=== PATIENT | female | born 1940 | race Caucasian/White ===

== ENCOUNTER 2017-09-10 16:20 | Inpatient (IN) ==
[2017-09-10 17:20] LABS: Basophils # 0.1 10*3/uL (0.0-0.2); Basophils % 0.4 % (0.0-0.8); Eosinophils # 0.3 10*3/uL (0.0-0.87); Hematocrit 36.1 VOL% (35.7-47.0); Hemoglobin 11.8 GM/DL (12.0-16.0); Immature Granulocytes % 0.4 %; Immature Granulocytes Absolute 0.06 #; Lymphocytes # 2.1 10*3/uL (1.4-4.0); Lymphocytes % 14.5 % (21.3-54.2); Mean Corpuscular HGB Conc 32.7 GM/DL (32-36); Mean Corpuscular Hemoglobin 29 PG (27-34); Mean Corpuscular Volume 87.2 FL (87-102); Mean Platelet Volume 13.4 FL (9.6-12.0); Monocytes # 1.1 10*3/uL (0.11-0.8); Monocytes % 7.4 % (1.7-12.7); Neutrophils # 10.7 10*3/uL (1.4-7.4); Neutrophils % 75.3 % (38.7-73.9); Platelet Count 184 T/CUMM (130-400); Red Blood Count 4.14 MC/CUMM (3.8-5.5); Red Cell Distribution Width 14.2 % (9.3-17.3); White Blood Count 14.2 T/CUMM (4-12)
[2017-09-10] MEDS ORDERED: SODIUM CHLORIDE 0.9% 500 ML IV STA (17:34)
[2017-09-10 17:50] LABS: Alanine Aminotransferase 19 U/L (13-56); Albumin 3.6 G/DL (3.4-5.0); Alkaline Phosphatase 90 U/L (45-117); Aspartate Amino Transferase 11 U/L (0-37); Blood Urea Nitrogen 22 MG/DL (7-18); Calcium 9.4 MG/DL (8.5-10.1); Glucose 151 MG/DL (74-106); Magnesium 2.2 MG/DL (1.8-2.4); Osmolality,Calculated 284.4 MOS/KG (273-304); Sodium 140 MMOL/L (136-145); Total Protein 6.9 G/DL (6.4-8.3); Troponin I Only < 0.015 NG/ML (0.00-0.045)
[2017-09-10] MEDS ORDERED: MAGNESIUM SULF RIDER 2 GM in PREMIX 1 EACH IV PRN (21:14)
[2017-09-10] MEDS ORDERED: POTASSIUM CHLORIDE 20 MEQ TABLET PO PRN (21:14)
[2017-09-10] MEDS ORDERED: MORPHINE 2 MG/1 ML SYRINGE IV PRN (21:14)
[2017-09-10] MEDS ORDERED: NITROGLYCERIN SL 0.4 MG TABLET SL PRN (21:14)
[2017-09-10] MEDS ORDERED: diphenhydrAMINE CAP 50 MG CAPSULE PO PRN (21:14)
[2017-09-10] MEDS ORDERED: MAGNESIUM SULF RIDER 4 GM in PREMIX 1 EACH IV PRN (21:14)
[2017-09-10] MEDS ORDERED: NAPROXEN 250 MG TABLET PO PRN (21:14)
[2017-09-10] MEDS: CARVEDILOL 6.25 MG TABLET PO SCH (22:22)
[2017-09-10] MEDS: TICAGRELOR 90 MG TABLET PO SCH (22:23)
[2017-09-10] MEDS: SIMVASTATIN 10 MG TABLET PO SCH (22:23)
[2017-09-10] MEDS: GABAPENTIN 300 MG CAPSULE PO SCH (22:23)
[2017-09-10] MEDS: ASPIRIN CHEW 81 MG TABLET PO SCH (22:23)
[2017-09-10] MEDS: SPIRONOLACTONE 25 MG TABLET PO SCH (22:25)
[2017-09-10] MEDS: SERTRALINE 50 MG TABLET PO SCH (22:25)
[2017-09-10 22:51] LABS: Troponin I Only < 0.015 NG/ML (0.00-0.045)
[2017-09-11 02:16] LABS: Troponin I Only < 0.015 NG/ML (0.00-0.045)
[2017-09-11 04:57] LABS: Basophils # 0.1 10*3/uL (0.0-0.2); Basophils % 0.3 % (0.0-0.8); Eosinophils # 0.5 10*3/uL (0.0-0.87); Eosinophils % 3.5 % (0.00-10.9); Hematocrit 33.5 VOL% (35.7-47.0); Immature Granulocytes % 0.3 %; Immature Granulocytes Absolute 0.05 #; Mean Corpuscular HGB Conc 32.8 GM/DL (32-36); Mean Corpuscular Hemoglobin 28 PG (27-34); Mean Corpuscular Volume 86.6 FL (87-102); Mean Platelet Volume 13.2 FL (9.6-12.0); Monocytes # 1.5 10*3/uL (0.11-0.8); Monocytes % 9.7 % (1.7-12.7); Neutrophils # 9.2 10*3/uL (1.4-7.4); Neutrophils % 60.2 % (38.7-73.9); Platelet Count 153 T/CUMM (130-400); Red Blood Count 3.87 MC/CUMM (3.8-5.5); Red Cell Distribution Width 14.1 % (9.3-17.3); White Blood Count 15.3 T/CUMM (4-12)
[2017-09-11 05:31] LABS: Albumin 3.4 G/DL (3.4-5.0); Bilirubin,Total 0.7 MG/DL (0.2-1.0); Calcium 8.8 MG/DL (8.5-10.1); Magnesium 2.2 MG/DL (1.8-2.4); Potassium 3.7 MMOL/L (3.5-5.1); Risk Ratio 2.71; Total Protein 5.9 G/DL (6.4-8.3)
[2017-09-11 05:40] LABS: Troponin I Only < 0.015 NG/ML (0.00-0.045)
[2017-09-11] MEDS: SODIUM CHLORIDE 0.9% 1,000 ML IV SCH ×2 (06:00→16:46)
[2017-09-11] MEDS ORDERED: NON-FORMULARY MEDICATION (Omeprazole [Omeprazole] 20 MG) PO SCH (09:00)
[2017-09-11] MEDS ORDERED: LISINOPRIL 5 MG TABLET PO SCH (09:00)
[2017-09-11 10:33] LABS: Apearance,Urine CLEAR (Clear); Bacteria,Urine Occasional /HPF (Few); Bilirubin,Urine Negative (Negative); Blood, Urine Small mg/dL (Negative); Glucose,Urine (UA) Negative (Negative); Ketones,Urine Negative (Negative); Nitrite,Urine Negative (Negative); Protein,Urine Negative; RBC,Urine <1 /HPF (0-4); Squamous Epithelial Cell,Urine Occasional /HPF (0-10); Urine Color Straw (Yellow); Urine Specific Gravity 1.005 (1.001-1.035); Urine Urobilinogen < 2.0 EU/DL (0.2-1.0); WBC,Urine <1 /HPF (0-6)
[2017-09-11] MEDS: SPIRONOLACTONE 25 MG TABLET PO SCH ×2 (16:38→21:33)
[2017-09-11] MEDS: TICAGRELOR 90 MG TABLET PO SCH ×2 (16:38→21:32)
[2017-09-11] MEDS: hydroCHLOROthiazide 12.5 MG CAPSULE PO SCH (16:39)
[2017-09-11] MEDS: GABAPENTIN 100 MG CAPSULE PO SCH (16:39)
[2017-09-11] MEDS: PANTOPRAZOLE 40 MG TABLET PO SCH (16:40)
[2017-09-11] MEDS: FAMOTIDINE 20 MG TABLET PO SCH (16:40)
[2017-09-11] MEDS: ISOSORBIDE MONONITRATE 30 MG TABLET PO SCH (16:41)
[2017-09-11] MEDS: CARVEDILOL 6.25 MG TABLET PO SCH (16:45)
[2017-09-11] MEDS: ASPIRIN CHEW 81 MG TABLET PO SCH (16:45)
[2017-09-11] MEDS: VALSARTAN 80 MG TABLET PO SCH (21:32)
[2017-09-11] MEDS: SERTRALINE 50 MG TABLET PO SCH (21:33)
[2017-09-11] MEDS: SIMVASTATIN 10 MG TABLET PO SCH (21:33)
[2017-09-11] MEDS: APIXABAN 5 MG TABLET PO SCH (21:33)
[2017-09-11] MEDS: CARVEDILOL 12.5 MG TABLET PO SCH (21:33)
[2017-09-11] MEDS: GABAPENTIN 300 MG CAPSULE PO SCH (21:35)
[2017-09-12 04:48] LABS: Basophils # 0.1 10*3/uL (0.0-0.2); Basophils % 0.5 % (0.0-0.8); Eosinophils # 0.4 10*3/uL (0.0-0.87); Eosinophils % 4.1 % (0.00-10.9); Hemoglobin 10.6 GM/DL (12.0-16.0); Immature Granulocytes % 0.3 %; Immature Granulocytes Absolute 0.03 #; Lymphocytes # 3.8 10*3/uL (1.4-4.0); Lymphocytes % 35.2 % (21.3-54.2); Mean Corpuscular HGB Conc 32.1 GM/DL (32-36); Mean Corpuscular Hemoglobin 28 PG (27-34); Mean Corpuscular Volume 87.3 FL (87-102); Mean Platelet Volume 13.5 FL (9.6-12.0); Monocytes # 1.2 10*3/uL (0.11-0.8); Neutrophils # 5.3 10*3/uL (1.4-7.4); Neutrophils % 48.9 % (38.7-73.9); Platelet Count 167 T/CUMM (130-400); Red Blood Count 3.78 MC/CUMM (3.8-5.5); White Blood Count 10.9 T/CUMM (4-12)
[2017-09-12 05:32] LABS: Calcium 8.9 MG/DL (8.5-10.1); Free T4 (Free Thyroxine) 1.03 NG/DL (0.76-1.46); Magnesium 2.4 MG/DL (1.8-2.4); Osmolality,Calculated 284.1 MOS/KG (273-304); Potassium 3.7 MMOL/L (3.5-5.1); Thyroid Stimulating Hormone 1.1 uIU/ml (0.358-3.74)
[2017-09-12] MEDS: VALSARTAN 80 MG TABLET PO SCH (08:54)
[2017-09-12] MEDS: TICAGRELOR 90 MG TABLET PO SCH (08:54)
[2017-09-12] MEDS: hydroCHLOROthiazide 12.5 MG CAPSULE PO SCH (08:54)
[2017-09-12] MEDS: CARVEDILOL 12.5 MG TABLET PO SCH (08:58)
[2017-09-12] MEDS: GABAPENTIN 100 MG CAPSULE PO SCH (08:58)
[2017-09-12] MEDS: APIXABAN 5 MG TABLET PO SCH (08:58)
[2017-09-12] MEDS: SPIRONOLACTONE 25 MG TABLET PO SCH (08:58)
[2017-09-12] MEDS: PANTOPRAZOLE 40 MG TABLET PO SCH (08:58)
[2017-09-12] MEDS: ISOSORBIDE MONONITRATE 30 MG TABLET PO SCH (08:59)
[2017-09-12] MEDS: FAMOTIDINE 20 MG TABLET PO SCH (08:59)
[2017-09-12] MEDS ORDERED: amLODIPine 5 MG TABLET PO SCH (11:00)
[2017-09-12 12:32] VITALS: BP 119/63
== END 2017-09-12 13:19 | disposition home or self-care (01) | DRG 309 ==
LOC: EDUNIT# → N.ED 16:20 → N.EDINP 19:21 → N.TELEN 19:47
PROVIDERS: ADMIT Internal Medicine Cardiovascular Disease; ATTEND Internal Medicine Cardiovascular Disease

== ENCOUNTER 2019-08-16 15:08 | Observation (INO) ==
[2019-08-16] MEDS ORDERED: SODIUM CHLORIDE 0.9% 500 ML IV STA (17:19)
[2019-08-16] MEDS ORDERED: ONDANSETRON 4 MG/2 ML VIAL IV STA (17:19)
[2019-08-16 17:32] LABS: Apearance,Urine CLOUDY (Clear); Bacteria,Urine Moderate /HPF (Few); Bilirubin,Urine Negative (Negative); Blood, Urine Small mg/dL (Negative); Glucose,Urine (UA) Negative (Negative); Hyaline Casts,Urine 5 /LPF (0-3); Ketones,Urine Negative (Negative); Mucus,Urine Occasional /LPF (Occasional); Nitrite,Urine Negative (Negative); Protein,Urine 100 MG/DL; RBC,Urine 16 /HPF (0-4); Squamous Epithelial Cell,Urine Occasional /HPF (0-10); Urine Color Yellow (Yellow); Urine Specific Gravity 1.014 (1.001-1.035); Urine Urobilinogen < 2.0 EU/DL (0.2-1.0); WBC,Urine 563 /HPF (0-6)
[2019-08-16 17:57] LABS: Basophils % 0.4 % (0.0-0.8); Eosinophils # 0.9 10*3/uL (0.0-0.87); Eosinophils % 9.8 % (0.00-10.9); Hematocrit 33.2 VOL% (35.7-47.0); Hemoglobin 10.5 GM/DL (12.0-16.0); Immature Granulocytes % 0.2 %; Immature Granulocytes Absolute 0.02 #; Lymphocytes # 1.9 10*3/uL (1.4-4.0); Lymphocytes % 19.8 % (21.3-54.2); Mean Corpuscular HGB Conc 31.6 GM/DL (32-36); Mean Corpuscular Volume 93.5 FL (87-102); Mean Platelet Volume 12.8 FL (9.6-12.0); Monocytes % 9.4 % (1.7-12.7); Neutrophils % 60.4 % (38.7-73.9); Platelet Count 129 T/CUMM (130-400); Red Blood Count 3.55 MC/CUMM (3.8-5.5); Red Cell Distribution Width 14.7 % (9.3-17.3); White Blood Count 9.5 T/CUMM (4-12)
[2019-08-16 18:14] LABS: Albumin 3.4 G/DL (3.4-5.0); Bilirubin,Total 0.5 MG/DL (0.2-1.0); Calcium 8.8 MG/DL (8.5-10.1); Osmolality,Calculated 275.7 MOS/KG (273-304); Total Protein 6.6 G/DL (6.4-8.3)
[2019-08-16 18:18] LABS: Troponin I < 0.015 NG/ML (0.00-0.045)
[2019-08-16] MEDS ORDERED: MEROPENEM 1,000 MG in SODIUM CHLORIDE 0.9% 100 ML IV ONE (19:12)
[2019-08-16 19:25] LABS: INR 0.9; PT Patient Result 9.8 SECS (9.6-12.2)
[2019-08-16] MEDS ORDERED: ONDANSETRON 4 MG/2 ML VIAL IV PRN (20:32)
[2019-08-16] MEDS ORDERED: ACETAMINOPHEN 325 MG TABLET PO PRN (20:32)
[2019-08-16] MEDS ORDERED: NITROGLYCERIN SL 0.4 MG TABLET SL PRN (20:37)
[2019-08-16] MEDS ORDERED: hydrOXYzine HCL 25 MG TABLET PO PRN (20:37)
[2019-08-16] MEDS ORDERED: LIDOCAINE/PRILOCAINE CREAM 5 GM TUBE TOP PRN (20:37)
[2019-08-16 22:29] LABS: Troponin I < 0.015 NG/ML (0.00-0.045)
[2019-08-16] MEDS: SERTRALINE 50 MG TABLET PO SCH (22:38)
[2019-08-16] MEDS: OXYBUTYNIN 5 MG TABLET PO SCH (22:38)
[2019-08-16] MEDS: carvediloL 12.5 MG TABLET PO SCH (22:38)
[2019-08-16] MEDS: GABAPENTIN 100 MG CAPSULE PO SCH (22:38)
[2019-08-16] MEDS: FAMOTIDINE 20 MG TABLET PO SCH (22:39)
[2019-08-16] MEDS: APIXABAN 5 MG TABLET PO SCH (22:39)
[2019-08-16] MEDS: SIMVASTATIN 10 MG TABLET PO SCH (22:39)
[2019-08-16] MEDS: hydrALAZINE 20 MG/1 ML VIAL IV PRN (22:40)
[2019-08-16] MEDS: VANCOMYCIN INJ 1,000 MG in SODIUM CHLORIDE 0.9% 250 ML IV SCH (23:30)
[2019-08-16] MEDS: SODIUM CHLORIDE 0.45% 1,000 ML IV SCH (23:34)
[2019-08-17] MEDS: MEROPENEM 500 MG in SODIUM CHLORIDE 0.9% 100 ML IV SCH ×4 (02:29→21:05)
[2019-08-17 05:44] LABS: Basophils % 0.3 % (0.0-0.8); Eosinophils % 11.5 % (0.00-10.9); Hematocrit 33.6 VOL% (35.7-47.0); Hemoglobin 10.7 GM/DL (12.0-16.0); Immature Granulocytes % 0.3 %; Immature Granulocytes Absolute 0.03 #; Lymphocytes # 1.5 10*3/uL (1.4-4.0); Lymphocytes % 16.5 % (21.3-54.2); Mean Corpuscular HGB Conc 31.8 GM/DL (32-36); Mean Corpuscular Volume 92.1 FL (87-102); Mean Platelet Volume 12.9 FL (9.6-12.0); Monocytes % 9.3 % (1.7-12.7); Neutrophils % 62.1 % (38.7-73.9); Platelet Count 116 T/CUMM (130-400); Red Blood Count 3.65 MC/CUMM (3.8-5.5); Red Cell Distribution Width 14.6 % (9.3-17.3); White Blood Count 8.9 T/CUMM (4-12)
[2019-08-17 06:13] LABS: Bilirubin,Total 0.4 MG/DL (0.2-1.0); Calcium 8.4 MG/DL (8.5-10.1); Osmolality,Calculated 282.3 MOS/KG (273-304); Risk Ratio 3.73; Total Protein 5.7 G/DL (6.4-8.3)
[2019-08-17 06:28] LABS: Eosinophils 9 % (0-10); Lymphocytes 13 % (20-55); Platelet Estimate Decreased; Polychromasia Slight; Segmented Neutrophils 73 % (50-85); Total Cells Counted 100
[2019-08-17] MEDS: TAMOXIFEN 10 MG TABLET PO SCH (08:39)
[2019-08-17] MEDS: hydrALAZINE 20 MG/1 ML VIAL IV PRN (08:39)
[2019-08-17] MEDS: OXYBUTYNIN 5 MG TABLET PO SCH ×2 (08:40→21:06)
[2019-08-17] MEDS: ASPIRIN EC 81 MG TABLET PO SCH (08:40)
[2019-08-17] MEDS: ISOSORBIDE MONONITRATE 30 MG TABLET PO SCH (08:40)
[2019-08-17] MEDS: APIXABAN 5 MG TABLET PO SCH ×2 (08:40→21:06)
[2019-08-17] MEDS: carvediloL 12.5 MG TABLET PO SCH ×2 (08:40→17:41)
[2019-08-17] MEDS: PANTOPRAZOLE 40 MG TABLET PO SCH (08:40)
[2019-08-17] MEDS: FAMOTIDINE 20 MG TABLET PO SCH ×2 (08:40→21:06)
[2019-08-17] MEDS: MORPHINE 4 MG/1 ML VIAL IV PRN ×2 (09:46→22:37)
[2019-08-17] MEDS: SODIUM CHLORIDE 0.45% 1,000 ML IV SCH (15:19)
[2019-08-17] MEDS: GABAPENTIN 100 MG CAPSULE PO SCH (21:05)
[2019-08-17] MEDS: SIMVASTATIN 10 MG TABLET PO SCH (21:06)
[2019-08-17] MEDS: SERTRALINE 50 MG TABLET PO SCH (21:06)
[2019-08-17] MEDS: VANCOMYCIN INJ 1,000 MG in SODIUM CHLORIDE 0.9% 250 ML IV SCH (22:37)
[2019-08-18] MEDS: MEROPENEM 500 MG in SODIUM CHLORIDE 0.9% 100 ML IV SCH ×2 (01:54→09:12)
[2019-08-18] MEDS: hydrALAZINE 20 MG/1 ML VIAL IV PRN (01:56)
[2019-08-18 07:00] LABS: Basophils % 0.3 % (0.0-0.8); Eosinophils # 0.8 10*3/uL (0.0-0.87); Eosinophils % 6.9 % (0.00-10.9); Hematocrit 31.4 VOL% (35.7-47.0); Hemoglobin 10.1 GM/DL (12.0-16.0); Immature Granulocytes % 0.5 %; Immature Granulocytes Absolute 0.06 #; Lymphocytes # 1.6 10*3/uL (1.4-4.0); Lymphocytes % 13.4 % (21.3-54.2); Mean Corpuscular HGB Conc 32.2 GM/DL (32-36); Mean Corpuscular Volume 92.1 FL (87-102); Mean Platelet Volume 12.9 FL (9.6-12.0); Monocytes % 8.8 % (1.7-12.7); Neutrophils % 70.1 % (38.7-73.9); Platelet Count 109 T/CUMM (130-400); Red Blood Count 3.41 MC/CUMM (3.8-5.5); Red Cell Distribution Width 14.9 % (9.3-17.3); White Blood Count 11.7 T/CUMM (4-12)
[2019-08-18 07:28] LABS: Calcium 8.6 MG/DL (8.5-10.1); Osmolality,Calculated 281.4 MOS/KG (273-304)
[2019-08-18] MEDS ORDERED: LOSARTAN 50 MG TABLET PO SCH (09:00)
[2019-08-18] MEDS: carvediloL 12.5 MG TABLET PO SCH (09:05)
[2019-08-18] MEDS: PANTOPRAZOLE 40 MG TABLET PO SCH (09:06)
[2019-08-18] MEDS: ISOSORBIDE MONONITRATE 30 MG TABLET PO SCH (09:06)
[2019-08-18] MEDS: APIXABAN 5 MG TABLET PO SCH (09:07)
[2019-08-18] MEDS: FAMOTIDINE 20 MG TABLET PO SCH (09:07)
[2019-08-18] MEDS: TAMOXIFEN 10 MG TABLET PO SCH (09:07)
[2019-08-18] MEDS: OXYBUTYNIN 5 MG TABLET PO SCH (09:07)
[2019-08-18] MEDS: ASPIRIN EC 81 MG TABLET PO SCH (09:08)
[2019-08-18 11:27] VITALS: BP 156/60
[2019-08-26] MEDS ORDERED: CYANOCOBALAMIN 1000 MCG/1 ML VIAL IM SCH (09:00)
== END 2019-08-18 14:28 | disposition home health service (06) ==
LOC: N.ED 15:08 → INTOOBSV 20:30 → N.EDINP 20:30 → N.4E 20:55
PROVIDERS: ADMIT Internal Medicine; ATTEND Internal Medicine

== ENCOUNTER 2020-08-05 00:11 | Observation (INO) ==
[2020-08-05 01:54] LABS: Basophils # 0.1 10*3/uL (0.0-0.2); Basophils % 0.4 % (0.0-0.8); Eosinophils # 0.2 10*3/uL (0.0-0.87); Eosinophils % 1.7 % (0.00-10.9); Hematocrit 33.1 VOL% (35.7-47.0); Hemoglobin 10.9 GM/DL (12.0-16.0); Immature Granulocytes % 1.1 %; Immature Granulocytes Absolute 0.16 #; Lymphocytes # 1.9 10*3/uL (1.4-4.0); Lymphocytes % 13.4 % (21.3-54.2); Mean Corpuscular HGB Conc 32.9 GM/DL (32-36); Mean Corpuscular Volume 96.2 FL (87-102); Mean Platelet Volume 11.6 FL (9.6-12.0); Monocytes % 8.4 % (1.7-12.7); NRBC # 0.02 10*3/uL; Platelet Count 232 T/CUMM (130-400); Red Blood Count 3.44 MC/CUMM (3.8-5.5); Red Cell Distribution Width 14.2 % (9.3-17.3); White Blood Count 14.1 T/CUMM (4-12)
[2020-08-05 02:31] LABS: Alanine Aminotransferase 16 U/L (13-56); Albumin 3.2 G/DL (3.4-5.0); Alkaline Phosphatase 79 U/L (45-117); Aspartate Amino Transferase 15 U/L (0-37); Bilirubin,Total < 0.39 MG/DL (0.2-1.0); Blood Urea Nitrogen 18 MG/DL (7-18); Calcium 8.7 MG/DL (8.5-10.1); Estimated Glom Filtration Rate 53 ML/MIN; Glucose 129 MG/DL (74-106); Osmolality,Calculated 284.3 MOS/KG (273-304); Total Protein 6.2 G/DL (6.4-8.3)
[2020-08-05] MEDS ORDERED: NITROGLYCERIN SL 0.4 MG TABLET SL STA (02:48)
[2020-08-05] MEDS ORDERED: DEXTROSE 50% 25 GM/50 ML VIAL IV PRN (03:44)
[2020-08-05] MEDS ORDERED: GLUCAGON 1 MG VIAL IM PRN (03:44)
[2020-08-05] MEDS ORDERED: ACETAMINOPHEN 325 MG TABLET PO PRN (03:44)
[2020-08-05] MEDS ORDERED: NITROGLYCERIN SL 0.4 MG TABLET SL PRN (03:48)
[2020-08-05] MEDS ORDERED: oxyCODONE/ACETAMINOPHEN 5-325 MG TABLET PO PRN (03:48)
[2020-08-05] MEDS ORDERED: ONDANSETRON 4 MG/2 ML VIAL IV STA (05:09)
[2020-08-05] MEDS ORDERED: ONDANSETRON 4 MG/2 ML VIAL ONE (05:10)
[2020-08-05 07:17] LABS: Basophils # 0.1 10*3/uL (0.0-0.2); Basophils % 0.4 % (0.0-0.8); Eosinophils # 0.3 10*3/uL (0.0-0.87); Eosinophils % 2.2 % (0.00-10.9); Hematocrit 32.2 VOL% (35.7-47.0); Hemoglobin 10.5 GM/DL (12.0-16.0); Immature Granulocytes % 0.4 %; Immature Granulocytes Absolute 0.06 #; Lymphocytes # 2.2 10*3/uL (1.4-4.0); Lymphocytes % 16.5 % (21.3-54.2); Mean Corpuscular HGB Conc 32.6 GM/DL (32-36); Mean Corpuscular Volume 97.6 FL (87-102); Monocytes % 9.2 % (1.7-12.7); Neutrophils % 71.3 % (38.7-73.9); Platelet Count 212 T/CUMM (130-400); Red Cell Distribution Width 14.3 % (9.3-17.3); White Blood Count 13.4 T/CUMM (4-12)
[2020-08-05 07:20] LABS: Calcium 8.9 MG/DL (8.5-10.1); Osmolality,Calculated 285.1 MOS/KG (273-304)
[2020-08-05] MEDS ORDERED: carvediloL 6.25 MG TABLET PO SCH (08:00)
[2020-08-05] MEDS ORDERED: GABAPENTIN 100 MG CAPSULE PO SCH (09:00)
[2020-08-05] MEDS ORDERED: ISOSORBIDE MONONITRATE 30 MG TABLET PO SCH (09:00)
[2020-08-05] MEDS ORDERED: CLOPIDOGREL 75 MG TABLET PO SCH (09:00)
[2020-08-05] MEDS ORDERED: TAMOXIFEN 10 MG TABLET PO SCH (09:00)
[2020-08-05] MEDS ORDERED: ROSUVASTATIN 20 MG TABLET PO SCH (09:00)
[2020-08-05] MEDS ORDERED: amLODIPine 10 MG TABLET PO SCH (09:00)
[2020-08-05] MEDS ORDERED: APIXABAN 5 MG TABLET PO SCH (09:00)
[2020-08-05] MEDS ORDERED: hydroCHLOROthiazide 25 MG TABLET PO SCH (09:00)
[2020-08-05] MEDS ORDERED: METHENAMINE HIPPURATE 1 GM TABLET PO SCH (09:00)
[2020-08-05] MEDS ORDERED: POTASSIUM CHLORIDE 20 MEQ TABLET PO SCH (09:00)
[2020-08-05] MEDS ORDERED: ENOXAPARIN 40 MG/0.4 ML SYRINGE SUBCUT SCH (09:00)
[2020-08-05 11:57] VITALS: BP 115/64
[2020-08-05] MEDS ORDERED: SERTRALINE 50 MG TABLET PO SCH (21:00)
[2020-08-07] MEDS ORDERED: INFLUENZA VIRUS VACCINE 0.5 ML SYRINGE IM ONE (09:00)
[2020-08-08] MEDS ORDERED: CYANOCOBALAMIN 1000 MCG/1 ML VIAL IM SCH (09:00)
== END 2020-08-05 13:54 | disposition home health service (06) ==
LOC: EDBD → EDUNIT# → N.ED 00:11 → N.EDINP 00:11 → N.TELEN 05:38
PROVIDERS: ADMIT Internal Medicine; ATTEND Internal Medicine

== ENCOUNTER 2021-10-23 20:02 | Inpatient (IN) ==
[2021-10-23 21:50] LABS: Basophils % 0.2 % (0.0-0.8); Eosinophils # 0.1 10*3/uL (0.0-0.87); Eosinophils % 0.3 % (0.00-10.9); Hematocrit 30.4 VOL% (35.7-47.0); Hemoglobin 9.8 GM/DL (12.0-16.0); Immature Granulocytes % 0.9 %; Immature Granulocytes Absolute 0.18 #; Lymphocytes # 0.7 10*3/uL (1.4-4.0); Lymphocytes % 3.4 % (21.3-54.2); Mean Corpuscular HGB Conc 32.2 GM/DL (32-36); Mean Corpuscular Volume 104.8 FL (87-102); Mean Platelet Volume 11.1 FL (9.6-12.0); Monocytes % 4.2 % (1.7-12.7); NRBC # 0.03 10*3/uL; Platelet Count 306 T/CUMM (130-400); Red Cell Distribution Width 12.7 % (9.3-17.3); White Blood Count 19.2 T/CUMM (4-12)
[2021-10-23 22:02] LABS: Alanine Aminotransferase 16 U/L (13-56); Alkaline Phosphatase 100 U/L (45-117); Aspartate Amino Transferase 14 U/L (0-37); Bilirubin,Total < 0.39 MG/DL (0.20-1.00); Blood Urea Nitrogen 10 MG/DL (7-18); Calcium 8.2 MG/DL (8.5-10.1); Carbon Dioxide 27 MMOL/L (21-32); Estimated Glom Filtration Rate 77 ML/MIN; Glucose 113 MG/DL (74-106); Sodium 136 MMOL/L (136-145); Total Protein 5.3 G/DL (6.4-8.2)
[2021-10-23 22:05] LABS: Bacteria,Urine Occasional /HPF (Few); Bilirubin,Urine Negative (Negative); Blood, Urine Small mg/dL (Negative); Glucose,Urine (UA) Negative (Negative); Granular Casts,Urine 2 /LPF (0-1); Hyaline Casts,Urine 2 /LPF (0-3); Ketones,Urine 5 mg/dL (Negative); Mucus,Urine Occasional /LPF (Occasional); Nitrite,Urine Positive (Negative); Protein,Urine 100 MG/DL; RBC,Urine 2 /HPF (0-4); Squamous Epithelial Cell,Urine Occasional /HPF (0-10); Urine Appearance CLOUDY (Clear); Urine Color Yellow (Yellow); Urine Urobilinogen < 2.0 EU/DL (<2.0)
[2021-10-23] MEDS ORDERED: PIPERACILLIN/TAZOBACTAM 3,375 MG in SODIUM CHLORIDE 0.9% 100 ML IV STA (22:15)
[2021-10-23] MEDS ORDERED: ONDANSETRON 4 MG/2 ML VIAL IV ONE (22:15)
[2021-10-23] MEDS ORDERED: HYDROmorphone 2 MG/1 ML VIAL IV STA (22:15)
[2021-10-23 22:22] LABS: Lymphocytes 4 % (20-55); Segmented Neutrophils 94 % (50-85); Total Cells Counted 100
[2021-10-23 22:23] LABS: Macrocytosis 1+; Platelet Estimate Adequate; Stomatocytes Few
[2021-10-23 22:24] LABS: Polychromasia 1+
[2021-10-24] MEDS ORDERED: hydrALAZINE 20 MG/1 ML VIAL IV PRN (00:25)
[2021-10-24] MEDS ORDERED: GLUCAGON 1 MG VIAL IM PRN (00:25)
[2021-10-24] MEDS: SODIUM CHLORIDE 0.9% 1,000 ML IV SCH ×2 (00:30→11:38)
[2021-10-24] MEDS ORDERED: MAGNESIUM SULF RIDER 4 GM/100 ML PREMIX IV PRN (00:31)
[2021-10-24] MEDS ORDERED: MAGNESIUM SULF RIDER 2 GM/50 ML PREMIX IV PRN (00:31)
[2021-10-24] MEDS ORDERED: DEXTROSE 10% 250 ML BAG IV PRN (00:35)
[2021-10-24] MEDS: ENOXAPARIN 40 MG/0.4 ML SYRINGE SUBCUT SCH (03:30)
[2021-10-24] MEDS: ONDANSETRON 4 MG/2 ML VIAL IV PRN ×2 (04:00→23:17)
[2021-10-24] MEDS: MORPHINE 2 MG/1 ML SYRINGE IV PRN ×4 (04:00→21:14)
[2021-10-24 04:18] LABS: Basophils % 0.2 % (0.0-0.8); Eosinophils # 0.1 10*3/uL (0.0-0.87); Eosinophils % 0.3 % (0.00-10.9); Hematocrit 26.6 VOL% (35.7-47.0); Hemoglobin 8.4 GM/DL (12.0-16.0); Immature Granulocytes Absolute 0.19 #; Lymphocytes # 0.9 10*3/uL (1.4-4.0); Lymphocytes % 5.1 % (21.3-54.2); Mean Corpuscular HGB Conc 31.6 GM/DL (32-36); Mean Corpuscular Volume 107.7 FL (87-102); Mean Platelet Volume 11.3 FL (9.6-12.0); Monocytes % 4.5 % (1.7-12.7); NRBC # 0.02 10*3/uL; Neutrophils % 88.9 % (38.7-73.9); Platelet Count 249 T/CUMM (130-400); Red Blood Count 2.47 MC/CUMM (3.8-5.5); Red Cell Distribution Width 12.9 % (9.3-17.3); White Blood Count 18.1 T/CUMM (4-12)
[2021-10-24 04:43] LABS: Albumin 1.8 G/DL (3.4-5.0); Bilirubin,Total 0.5 MG/DL (0.20-1.00); Calcium 8.4 MG/DL (8.5-10.1); Potassium 3.9 MMOL/L (3.5-5.1); Total Protein 5.8 G/DL (6.4-8.2)
[2021-10-24] MEDS: PANTOPRAZOLE 40 MG TABLET PO SCH (11:40)
[2021-10-24] MEDS ORDERED: oxyCODONE IR 5 MG TABLET PO PRN (20:33)
[2021-10-25] MEDS ORDERED: MORPHINE 2 MG/1 ML SYRINGE IV ONE (00:08)
[2021-10-25] MEDS: ACETAMINOPHEN 325 MG TABLET PO PRN (00:34)
[2021-10-25] MEDS: SODIUM CHLORIDE 0.9% 1,000 ML IV SCH (00:40)
[2021-10-25] MEDS ORDERED: METOPROLOL TARTRATE 5 MG/5 ML VIAL IV ONE (04:46)
[2021-10-25] MEDS: carvediloL 12.5 MG TABLET PO SCH ×2 (05:13→09:26)
[2021-10-25] MEDS: MORPHINE 2 MG/1 ML SYRINGE IV PRN (05:14)
[2021-10-25 06:03] LABS: Basophils # 0.1 10*3/uL (0.0-0.2); Basophils % 0.2 % (0.0-0.8); Eosinophils # 0.1 10*3/uL (0.0-0.87); Eosinophils % 0.3 % (0.00-10.9); Hematocrit 29.4 VOL% (35.7-47.0); Hemoglobin 9.3 GM/DL (12.0-16.0); Immature Granulocytes % 1.2 %; Immature Granulocytes Absolute 0.28 #; Lymphocytes # 1.1 10*3/uL (1.4-4.0); Lymphocytes % 4.9 % (21.3-54.2); Mean Corpuscular HGB Conc 31.6 GM/DL (32-36); Mean Corpuscular Volume 106.1 FL (87-102); Mean Platelet Volume 11.2 FL (9.6-12.0); Monocytes % 3.8 % (1.7-12.7); NRBC # 0.03 10*3/uL; Neutrophils % 89.6 % (38.7-73.9); Platelet Count 385 T/CUMM (130-400); Red Blood Count 2.77 MC/CUMM (3.8-5.5); Red Cell Distribution Width 12.6 % (9.3-17.3); White Blood Count 22.8 T/CUMM (4-12)
[2021-10-25 06:25] LABS: Albumin 2.2 G/DL (3.4-5.0); Bilirubin,Total 0.7 MG/DL (0.20-1.00); Calcium 8.7 MG/DL (8.5-10.1); Osmolality,Calculated 272.7 MOS/KG (273-304); Potassium 3.5 MMOL/L (3.5-5.1)
[2021-10-25 06:30] LABS: Hypochromia 1+; Lymphocytes 4 % (20-55); Microcytosis 1+; Platelet Estimate Adequate; Segmented Neutrophils 94 % (50-85); Total Cells Counted 100
[2021-10-25] MEDS ORDERED: fentaNYL 25 MCG/HR PATCH TRANSDERM SCH (09:00)
[2021-10-25] MEDS ORDERED: FUROSEMIDE 40 MG/4 ML VIAL IV ONE ×2 (09:09→16:30)
[2021-10-25] MEDS ORDERED: NITROGLYCERIN SL 0.4 MG TABLET SL PRN (09:10)
[2021-10-25] MEDS: ENOXAPARIN 40 MG/0.4 ML SYRINGE SUBCUT SCH (09:26)
[2021-10-25] MEDS: PANTOPRAZOLE 40 MG TABLET PO SCH (09:26)
[2021-10-25] MEDS: CHOLECALCIFEROL 1,000 UNIT TABLET PO SCH (09:53)
[2021-10-25] MEDS: ROSUVASTATIN 20 MG TABLET PO SCH (09:53)
[2021-10-25] MEDS: METHENAMINE HIPPURATE 1 GM TABLET PO SCH (09:53)
[2021-10-25] MEDS: FERROUS SULFATE 325 MG TABLET PO SCH ×2 (09:53→18:00)
[2021-10-25] MEDS: POTASSIUM CHLORIDE 20 MEQ TABLET PO SCH (09:54)
[2021-10-25] MEDS: amLODIPine 5 MG TABLET PO SCH (09:54)
[2021-10-25] MEDS: ISOSORBIDE MONONITRATE 30 MG TABLET PO SCH (09:54)
[2021-10-25] MEDS: TAMOXIFEN 10 MG TABLET PO SCH (10:07)
[2021-10-25] MEDS ORDERED: MORPHINE 2 MG/1 ML SYRINGE IV PRN (10:51)
[2021-10-25] MEDS: ONDANSETRON 4 MG/2 ML VIAL IV PRN (12:02)
[2021-10-25] MEDS ORDERED: NALOXONE 0.4 MG/ML VIAL IV PRN (12:09)
[2021-10-25] MEDS ORDERED: MORPHINE PCA 30 MG/30 ML SYRINGE IV SCH (12:30)
[2021-10-25] MEDS ORDERED: MORPHINE 2 MG/1 ML SYRINGE IM PRN (13:16)
[2021-10-25] MEDS ORDERED: DIAZEPAM 5 MG TABLET PO ONE (13:30)
[2021-10-25] MEDS ORDERED: MIDAZOLAM 2 MG/2 ML VIAL IV ONE (13:30)
[2021-10-25] MEDS ORDERED: fentaNYL 100 MCG/2 ML VIAL IV ONE (13:30)
[2021-10-25] MEDS: SODIUM CHLORIDE 0.45% 1,000 ML IV SCH (15:19)
[2021-10-25] MEDS: cefTRIAXone 1,000 MG in SODIUM CHLORIDE 0.9% 100 ML IV SCH (18:14)
[2021-10-25] MEDS: diphenhydrAMINE CAP 25 MG CAPSULE PO SCH (23:16)
[2021-10-26] MEDS: METHENAMINE HIPPURATE 1 GM TABLET PO SCH ×3 (02:03→20:26)
[2021-10-26] MEDS: SERTRALINE 50 MG TABLET PO SCH ×2 (02:03→20:26)
[2021-10-26] MEDS: carvediloL 12.5 MG TABLET PO SCH ×3 (02:03→20:26)
[2021-10-26 06:21] LABS: Basophils # 0.1 10*3/uL (0.0-0.2); Basophils % 0.3 % (0.0-0.8); Hematocrit 22.8 VOL% (35.7-47.0); Hemoglobin 7.3 GM/DL (12.0-16.0); Immature Granulocytes % 3.7 %; Immature Granulocytes Absolute 1.54 #; Lymphocytes # 0.6 10*3/uL (1.4-4.0); Lymphocytes % 1.3 % (21.3-54.2); Mean Corpuscular Volume 107.5 FL (87-102); Mean Platelet Volume 11.4 FL (9.6-12.0); Monocytes % 1.3 % (1.7-12.7); NRBC # 0.04 10*3/uL; Neutrophils % 93.4 % (38.7-73.9); Platelet Count 274 T/CUMM (130-400); Red Blood Count 2.12 MC/CUMM (3.8-5.5)
[2021-10-26 06:24] LABS: White Blood Count 41.3 T/CUMM (4-12)
[2021-10-26 06:34] LABS: Calcium 8.1 MG/DL (8.5-10.1); Osmolality,Calculated 284.3 MOS/KG (273-304); Potassium 3.5 MMOL/L (3.5-5.1)
[2021-10-26 06:47] LABS: Band Neutrophils 11 % (0-10); Hypochromia 1+; Lymphocytes 1 % (20-55); Microcytosis 1+; Platelet Estimate Adequate; Segmented Neutrophils 87 % (50-85); Total Cells Counted 100
[2021-10-26] MEDS: FERROUS SULFATE 325 MG TABLET PO SCH ×2 (08:41→16:09)
[2021-10-26] MEDS: PANTOPRAZOLE 40 MG TABLET PO SCH (08:42)
[2021-10-26] MEDS: ISOSORBIDE MONONITRATE 30 MG TABLET PO SCH (08:42)
[2021-10-26] MEDS: hydroCHLOROthiazide 12.5 MG CAPSULE PO SCH (08:42)
[2021-10-26] MEDS: ENOXAPARIN 40 MG/0.4 ML SYRINGE SUBCUT SCH (08:42)
[2021-10-26] MEDS: CHOLECALCIFEROL 1,000 UNIT TABLET PO SCH (08:42)
[2021-10-26] MEDS: ASPIRIN EC 81 MG TABLET PO SCH (08:42)
[2021-10-26] MEDS: amLODIPine 5 MG TABLET PO SCH (08:42)
[2021-10-26] MEDS: POTASSIUM CHLORIDE 20 MEQ TABLET PO SCH (08:42)
[2021-10-26] MEDS: ROSUVASTATIN 20 MG TABLET PO SCH (08:42)
[2021-10-26] MEDS: TAMOXIFEN 10 MG TABLET PO SCH (08:43)
[2021-10-26 10:55] LABS: Basophils # 0.2 10*3/uL (0.0-0.2); Basophils % 0.4 % (0.0-0.8); Hematocrit 22.1 VOL% (35.7-47.0); Hemoglobin 7.1 GM/DL (12.0-16.0); Immature Granulocytes % 4.5 %; Immature Granulocytes Absolute 1.85 #; Lymphocytes # 0.6 10*3/uL (1.4-4.0); Lymphocytes % 1.5 % (21.3-54.2); Mean Corpuscular HGB Conc 32.1 GM/DL (32-36); Mean Corpuscular Volume 106.3 FL (87-102); Mean Platelet Volume 11.2 FL (9.6-12.0); Monocytes % 1.4 % (1.7-12.7); NRBC # 0.03 10*3/uL; Neutrophils % 92.2 % (38.7-73.9); Platelet Count 273 T/CUMM (130-400); Red Blood Count 2.08 MC/CUMM (3.8-5.5); Red Cell Distribution Width 13.1 % (9.3-17.3)
[2021-10-26 11:01] LABS: White Blood Count 41.2 T/CUMM (4-12)
[2021-10-26 11:11] LABS: Osmolality,Calculated 280.5 MOS/KG (273-304); Potassium 3.5 MMOL/L (3.5-5.1)
[2021-10-26 11:15] LABS: Anisocytosis 2+; Band Neutrophils 36 % (0-10); Lymphocytes 1 % (20-55); Metamyelocytes 3 %; Myelocytes 1 %; Nucleated Red Blood Cells 1 (0-5); Platelet Estimate Normal; Segmented Neutrophils 59 % (50-85); Smudge Cells Few; Total Cells Counted 100
[2021-10-26 11:16] LABS: Misc Morphology 51
[2021-10-26] MEDS: SODIUM CHLORIDE 0.45% 1,000 ML IV SCH (17:14)
[2021-10-26] MEDS: cefTRIAXone 1,000 MG in SODIUM CHLORIDE 0.9% 100 ML IV SCH (17:14)
[2021-10-26] MEDS: diphenhydrAMINE CAP 25 MG CAPSULE PO SCH (20:26)
[2021-10-27] MEDS: hydroCHLOROthiazide 12.5 MG CAPSULE PO SCH (09:30)
[2021-10-27] MEDS: CHOLECALCIFEROL 1,000 UNIT TABLET PO SCH (09:30)
[2021-10-27] MEDS: METHENAMINE HIPPURATE 1 GM TABLET PO SCH ×2 (09:30→21:57)
[2021-10-27] MEDS: POTASSIUM CHLORIDE 20 MEQ TABLET PO SCH (09:30)
[2021-10-27] MEDS: ISOSORBIDE MONONITRATE 30 MG TABLET PO SCH (09:30)
[2021-10-27] MEDS: FERROUS SULFATE 325 MG TABLET PO SCH ×2 (09:30→17:13)
[2021-10-27] MEDS: PANTOPRAZOLE 40 MG TABLET PO SCH (09:30)
[2021-10-27] MEDS: carvediloL 12.5 MG TABLET PO SCH ×2 (09:30→21:57)
[2021-10-27] MEDS: ROSUVASTATIN 20 MG TABLET PO SCH (09:30)
[2021-10-27] MEDS: TAMOXIFEN 10 MG TABLET PO SCH (09:30)
[2021-10-27] MEDS: ENOXAPARIN 40 MG/0.4 ML SYRINGE SUBCUT SCH (09:31)
[2021-10-27] MEDS: amLODIPine 5 MG TABLET PO SCH (09:31)
[2021-10-27] MEDS: ASPIRIN EC 81 MG TABLET PO SCH (09:31)
[2021-10-27 10:26] LABS: Basophils # 0.1 10*3/uL (0.0-0.2); Basophils % 0.3 % (0.0-0.8); Eosinophils # 0.4 10*3/uL (0.0-0.87); Eosinophils % 1.1 % (0.00-10.9); Hematocrit 23.7 VOL% (35.7-47.0); Hemoglobin 7.7 GM/DL (12.0-16.0); Immature Granulocytes % 3.5 %; Immature Granulocytes Absolute 1.14 #; Lymphocytes # 0.7 10*3/uL (1.4-4.0); Lymphocytes % 2.1 % (21.3-54.2); Mean Corpuscular HGB Conc 32.5 GM/DL (32-36); Mean Corpuscular Volume 105.8 FL (87-102); Mean Platelet Volume 11.6 FL (9.6-12.0); Monocytes % 1.3 % (1.7-12.7); Neutrophils % 91.7 % (38.7-73.9); Platelet Count 276 T/CUMM (130-400); Red Blood Count 2.24 MC/CUMM (3.8-5.5); White Blood Count 32.5 T/CUMM (4-12)
[2021-10-27 10:40] LABS: Calcium 8.2 MG/DL (8.5-10.1); Osmolality,Calculated 285.7 MOS/KG (273-304); Potassium 3.2 MMOL/L (3.5-5.1)
[2021-10-27 10:57] LABS: Band Neutrophils 1 % (0-10); Lymphocytes 1 % (20-55); Segmented Neutrophils 97 % (50-85); Total Cells Counted 100
[2021-10-27 10:58] LABS: Macrocytosis 1+; Platelet Estimate Normal; Polychromasia Slight
[2021-10-27] MEDS ORDERED: fentaNYL 25 MCG/HR PATCH TRANSDERM SCH (11:30)
[2021-10-27] MEDS: cefTRIAXone 1,000 MG in SODIUM CHLORIDE 0.9% 100 ML IV SCH (17:12)
[2021-10-27] MEDS ORDERED: POTASSIUM BICARB EFFERVESCENT 20 MEQ TAB.EFF PO ONE (19:29)
[2021-10-27] MEDS: SERTRALINE 50 MG TABLET PO SCH (21:57)
[2021-10-27] MEDS: SODIUM CHLORIDE 0.45% 1,000 ML IV SCH (21:58)
[2021-10-27] MEDS: diphenhydrAMINE CAP 25 MG CAPSULE PO SCH (21:58)
[2021-10-28 05:45] LABS: Basophils # 0.1 10*3/uL (0.0-0.2); Basophils % 0.3 % (0.0-0.8); Eosinophils # 0.4 10*3/uL (0.0-0.87); Eosinophils % 1.8 % (0.00-10.9); Hematocrit 24.6 VOL% (35.7-47.0); Immature Granulocytes % 2.3 %; Immature Granulocytes Absolute 0.46 #; Lymphocytes # 0.9 10*3/uL (1.4-4.0); Lymphocytes % 4.4 % (21.3-54.2); Mean Corpuscular HGB Conc 32.5 GM/DL (32-36); Mean Platelet Volume 11.7 FL (9.6-12.0); Monocytes % 2.4 % (1.7-12.7); NRBC # 0.03 10*3/uL; Neutrophils % 88.8 % (38.7-73.9); Platelet Count 288 T/CUMM (130-400); Red Blood Count 2.32 MC/CUMM (3.8-5.5); Red Cell Distribution Width 12.7 % (9.3-17.3); White Blood Count 19.8 T/CUMM (4-12)
[2021-10-28 05:58] LABS: Calcium 8.5 MG/DL (8.5-10.1); Osmolality,Calculated 277.7 MOS/KG (273-304); Potassium 3.8 MMOL/L (3.5-5.1)
[2021-10-28 07:07] LABS: Band Neutrophils 2 % (0-10); Eosinophils 1 % (0-10); Lymphocytes 3 % (20-55); Segmented Neutrophils 91 % (50-85); Total Cells Counted 100
[2021-10-28 07:08] LABS: Platelet Estimate Normal; Polychromasia Slight
[2021-10-28 07:09] LABS: Macrocytosis Slight; Spherocytes Few
[2021-10-28] MEDS ORDERED: MAGNESIUM HYDROXIDE SUSP 30 ML UDCUP PO PRN (08:44)
[2021-10-28] MEDS ORDERED: LACTULOSE 20 GM/30 ML UDCUP PO PRN (08:44)
[2021-10-28] MEDS ORDERED: POLYETHYLENE GLYCOL POWDER 17 GM PACK PO PRN (08:44)
[2021-10-28] MEDS: POTASSIUM CHLORIDE 20 MEQ TABLET PO SCH (09:35)
[2021-10-28] MEDS: PANTOPRAZOLE 40 MG TABLET PO SCH (09:35)
[2021-10-28] MEDS: TAMOXIFEN 10 MG TABLET PO SCH (09:35)
[2021-10-28] MEDS: ISOSORBIDE MONONITRATE 30 MG TABLET PO SCH (09:35)
[2021-10-28] MEDS: ASPIRIN EC 81 MG TABLET PO SCH (09:35)
[2021-10-28] MEDS: CHOLECALCIFEROL 1,000 UNIT TABLET PO SCH (09:35)
[2021-10-28] MEDS: METHENAMINE HIPPURATE 1 GM TABLET PO SCH ×2 (09:35→21:08)
[2021-10-28] MEDS: ENOXAPARIN 40 MG/0.4 ML SYRINGE SUBCUT SCH (09:35)
[2021-10-28] MEDS: carvediloL 12.5 MG TABLET PO SCH ×2 (09:35→21:08)
[2021-10-28] MEDS: FERROUS SULFATE 325 MG TABLET PO SCH ×2 (09:35→17:25)
[2021-10-28] MEDS: amLODIPine 5 MG TABLET PO SCH (09:35)
[2021-10-28] MEDS: ROSUVASTATIN 20 MG TABLET PO SCH (09:35)
[2021-10-28] MEDS: hydroCHLOROthiazide 12.5 MG CAPSULE PO SCH (09:35)
[2021-10-28] MEDS: cefTRIAXone 1,000 MG in SODIUM CHLORIDE 0.9% 100 ML IV SCH (17:24)
[2021-10-28] MEDS: diphenhydrAMINE CAP 25 MG CAPSULE PO SCH (19:36)
[2021-10-28] MEDS: SERTRALINE 50 MG TABLET PO SCH (21:08)
[2021-10-28] MEDS: SODIUM CHLORIDE 0.45% 1,000 ML IV SCH (21:13)
[2021-10-29] MEDS: ASPIRIN EC 81 MG TABLET PO SCH (10:17)
[2021-10-29] MEDS: ISOSORBIDE MONONITRATE 30 MG TABLET PO SCH (10:17)
[2021-10-29] MEDS: FERROUS SULFATE 325 MG TABLET PO SCH ×2 (10:17→18:35)
[2021-10-29] MEDS: POTASSIUM CHLORIDE 20 MEQ TABLET PO SCH (10:17)
[2021-10-29] MEDS: carvediloL 12.5 MG TABLET PO SCH ×2 (10:17→21:15)
[2021-10-29] MEDS: CHOLECALCIFEROL 1,000 UNIT TABLET PO SCH (10:17)
[2021-10-29] MEDS: ROSUVASTATIN 20 MG TABLET PO SCH (10:17)
[2021-10-29] MEDS: hydroCHLOROthiazide 12.5 MG CAPSULE PO SCH (10:17)
[2021-10-29] MEDS: ACETAMINOPHEN 325 MG TABLET PO PRN (10:18)
[2021-10-29] MEDS: PANTOPRAZOLE 40 MG TABLET PO SCH (10:18)
[2021-10-29] MEDS: TAMOXIFEN 10 MG TABLET PO SCH (10:18)
[2021-10-29] MEDS: amLODIPine 5 MG TABLET PO SCH (10:19)
[2021-10-29] MEDS: METHENAMINE HIPPURATE 1 GM TABLET PO SCH ×2 (10:19→21:15)
[2021-10-29] MEDS: ENOXAPARIN 40 MG/0.4 ML SYRINGE SUBCUT SCH (11:20)
[2021-10-29] MEDS: oxyCODONE/ACETAMINOPHEN 5-325 MG TABLET PO PRN (15:14)
[2021-10-29] MEDS ORDERED: carvediloL 6.25 MG TABLET PO SCH (17:00)
[2021-10-29] MEDS: cefTRIAXone 1,000 MG in SODIUM CHLORIDE 0.9% 100 ML IV SCH (18:35)
[2021-10-29] MEDS: SODIUM CHLORIDE 0.45% 1,000 ML IV SCH (21:14)
[2021-10-29] MEDS: diphenhydrAMINE CAP 25 MG CAPSULE PO SCH (21:14)
[2021-10-29] MEDS: APIXABAN 2.5 MG TABLET PO SCH (21:15)
[2021-10-29] MEDS: SERTRALINE 50 MG TABLET PO SCH (21:15)
[2021-10-30] MEDS: oxyCODONE/ACETAMINOPHEN 5-325 MG TABLET PO PRN (06:31)
[2021-10-30] MEDS ORDERED: ENOXAPARIN 40 MG/0.4 ML SYRINGE SUBCUT SCH (07:00)
[2021-10-30 07:33] LABS: Basophils % 0.4 % (0.0-0.8); Eosinophils # 0.3 10*3/uL (0.0-0.87); Eosinophils % 2.8 % (0.00-10.9); Hematocrit 30.1 VOL% (35.7-47.0); Immature Granulocytes % 1.5 %; Immature Granulocytes Absolute 0.15 #; Lymphocytes # 1.1 10*3/uL (1.4-4.0); Lymphocytes % 11.2 % (21.3-54.2); Mean Corpuscular HGB Conc 33.2 GM/DL (32-36); Mean Platelet Volume 11.7 FL (9.6-12.0); Monocytes % 6.8 % (1.7-12.7); NRBC # 0.04 10*3/uL; Neutrophils % 77.3 % (38.7-73.9); Platelet Count 300 T/CUMM (130-400); Red Cell Distribution Width 11.9 % (9.3-17.3)
[2021-10-30 07:40] LABS: Red Blood Count 2.95 MC/CUMM (3.8-5.5); White Blood Count 10.1 T/CUMM (4-12)
[2021-10-30 07:49] LABS: Alanine Aminotransferase 30 U/L (13-56); Albumin 2.3 G/DL (3.4-5.0); Alkaline Phosphatase 129 U/L (45-117); Aspartate Amino Transferase 38 U/L (0-37); Bilirubin,Total < 0.39 MG/DL (0.20-1.00); Blood Urea Nitrogen 12 MG/DL (7-18); Calcium 8.7 MG/DL (8.5-10.1); Carbon Dioxide 29 MMOL/L (21-32); Estimated Glom Filtration Rate 62 ML/MIN; Glucose 120 MG/DL (74-106); Osmolality,Calculated 270.1 MOS/KG (273-304); Potassium 3.7 MMOL/L (3.5-5.1); Sodium 135 MMOL/L (136-145); Total Protein 6.1 G/DL (6.4-8.2)
[2021-10-30] MEDS: METHENAMINE HIPPURATE 1 GM TABLET PO SCH (08:26)
[2021-10-30] MEDS: CHOLECALCIFEROL 1,000 UNIT TABLET PO SCH (08:26)
[2021-10-30] MEDS: hydroCHLOROthiazide 12.5 MG CAPSULE PO SCH (08:26)
[2021-10-30] MEDS: APIXABAN 2.5 MG TABLET PO SCH (08:27)
[2021-10-30] MEDS: FERROUS SULFATE 325 MG TABLET PO SCH (08:27)
[2021-10-30] MEDS: TAMOXIFEN 10 MG TABLET PO SCH (08:27)
[2021-10-30] MEDS: ISOSORBIDE MONONITRATE 30 MG TABLET PO SCH (08:27)
[2021-10-30] MEDS: ASPIRIN EC 81 MG TABLET PO SCH (08:27)
[2021-10-30] MEDS: PANTOPRAZOLE 40 MG TABLET PO SCH (08:27)
[2021-10-30] MEDS: amLODIPine 5 MG TABLET PO SCH (08:27)
[2021-10-30] MEDS: POTASSIUM CHLORIDE 20 MEQ TABLET PO SCH (08:27)
[2021-10-30] MEDS: ROSUVASTATIN 20 MG TABLET PO SCH (08:27)
[2021-10-30] MEDS: carvediloL 12.5 MG TABLET PO SCH (08:45)
[2021-10-30] MEDS ORDERED: CLOPIDOGREL 75 MG TABLET PO SCH (09:00)
[2021-10-30] MEDS ORDERED: POLYETHYLENE GLYCOL POWDER 17 GM PACK PO SCH (09:00)
[2021-10-30] MEDS ORDERED: amLODIPine 5 MG TABLET PO ONE (09:00)
[2021-10-30] MEDS: SODIUM CHLORIDE 0.45% 1,000 ML IV SCH (11:43)
[2021-10-30 16:18] VITALS: BP 142/59
[2021-10-31] MEDS ORDERED: amLODIPine 10 MG TABLET PO SCH (09:00)
== END 2021-10-30 18:51 | disposition home health service (06) | DRG 689 ==
LOC: EDUNIT# → EDBD → N.ED 20:02 → SUATTDRO 10-24 00:25 → N.EDINP 10-24 00:25 → N.3E 10-24 15:42
PROVIDERS: ADMIT Internal Medicine; ATTEND Internal Medicine